=== PATIENT | female | born 1965 | race Caucasian/White ===

== ENCOUNTER 2020-05-11 10:26 | Outpatient (CLI) | payer OTHER | END 2020-05-11 10:38 | disposition home or self-care (01) | LOC: LAB 10:26 | DX: N20.0 Calculus of kidney (principal) ==

== ENCOUNTER 2023-01-06 09:27 | Outpatient (CLI) | payer OTHER | END 2023-01-06 09:37 | disposition home or self-care (01) | LOC: RAD 09:27 | PROVIDERS: ATTEND Dermatology | DX: M86.19 Other acute osteomyelitis, multiple sites (principal) ==

== ENCOUNTER 2023-01-30 13:00 | Outpatient (CLI) | payer OTHER | END 2023-01-30 13:05 | disposition home or self-care (01) | LOC: NUCLEAR 13:00 | PROVIDERS: ATTEND Orthopaedic Surgery | DX: M81.0 Age-related osteoporosis without current pathological fracture (principal) ==

== ENCOUNTER 2023-03-20 08:40 | Outpatient (CLI) | payer OTHER | END 2023-03-20 08:41 | disposition home or self-care (01) | LOC: LAB 08:40 | PROVIDERS: ATTEND Orthopaedic Surgery | DX: E55.9 Vitamin D deficiency, unspecified (principal); M85.9 Disorder of bone density and structure, unspecified; E56.1 Deficiency of vitamin K ==

== ENCOUNTER 2023-10-20 10:44 | Outpatient (CLI) | payer OTHER | END 2023-10-20 10:52 | disposition home or self-care (01) | LOC: RAD 10:44 | PROVIDERS: ATTEND Plastic Surgery | DX: Z01.818 Encounter for other preprocedural examination (principal); R07.9 Chest pain, unspecified ==

== ENCOUNTER 2023-12-20 22:04 | Inpatient (IN) | payer OTHER ==
[~2023-12-20] VITALS: Ht 172.7 cm; Wt 69.9 kg
[2023-12-20] MEDS ORDERED: CLOPIDOGREL BIS75 MG PO (22:51)
[2023-12-20] MEDS ORDERED: LOSARTAN POTASS50 MG PO (22:51)
[2023-12-20] MEDS ORDERED: ADULT LOW DOSE81 M1 PO (22:52)
[2023-12-20] MEDS ORDERED: CILOSTAZOL100 MG PO (22:52)
[2023-12-20] MEDS ORDERED: TOPROL XL25 M1 PO (22:53)
[2023-12-20 23:49] LABS: PH,URINE 5.5 (5.0-8.0); URINE APPEARANCE Clear; URINE BILIRRUBIN Negative (NEGATIVE); URINE BLOOD Negative; URINE COLOR Yellow; URINE GLUCOSE Negative (NEGATIVE); URINE LEUKOCYTE Trace; URINE NITRATE Negative; URINE PROTEIN Negative (NEGATIVE); URINE UROBILINOGEN 0.2 E.U./dl
[2023-12-20 23:52] LABS: URINE BACTERIA 2327.2 uL (0.0-1933); URINE RBC 5.8 uL (0.0-20.8); URINE WBC 30.8 uL (0.0-23.2)
[2023-12-20 23:53] LABS: HEMATOCRIT 41.5 % (36.0-45.00); HEMOGLOBIN 13.3 g/dL (12.0-15.00); MEAN CELL VOLUME 85.3 fL (80.00-100.00); MEAN CORPUSCULAR HEMOGLOBIN 27.3 pg (27.00-32.0); PLATELET COUNT 524 K/uL (150-450); RED BLOOD COUNT 4.86 M/uL (4.00-6.00); RED CELL DISTRIBUTION WIDTH 17.1 % (11.5-14.5)
[2023-12-21 00:54] LABS: INR 0.98; PARTIAL THROMBOPLASTIN TIME 25.2 SECONDS (22.0-34.0); PROTHROMBIN TIME 10.3 SECONDS (9.0-11.5)
[2023-12-21 00:55] LABS: CALCIUM 9.4 mg/dL (8.5-10.1); CREATININE SERUM 1.12 mg/dL (0.55-1.02); GFR 50.32; POTASSIUM 4.31 mEq/L (3.5-5.1)
[2023-12-22 07:08] LABS: HEMATOCRIT 35.6 % (36.0-45.00); HEMOGLOBIN 11.8 g/dL (12.0-15.00); MEAN CELL VOLUME 85.2 fL (80.00-100.00); MEAN CORPUSCULAR HEMOGLOBIN 28.3 pg (27.00-32.0); MEAN CORPUSCULAR HGB CONC 33.3 g/dl (32.0-36.0); PLATELET COUNT 346 K/uL (150-450); RED BLOOD COUNT 4.18 M/uL (4.00-6.00); RED CELL DISTRIBUTION WIDTH 16.8 % (11.5-14.5)
[2023-12-22 07:17] LABS: ALBUMIN 3.3 gm/dL (3.4-5.0); BILIRUBIN TOTAL 0.29 mg/dL (0.3-1.2); CALCIUM 8.9 mg/dL (8.5-10.1); CREATININE SERUM 0.77 mg/dL (0.55-1.02); GFR 77.54; GLOBULINA 2.9 G/DL (2.4-3.5); MAGNESIUM 2.2 mg/dL (1.8-2.4); PHOSPHOROUS 3.2 mg/dL (2.5-4.9); POTASSIUM 4.29 mEq/L (3.5-5.1); TOTAL PROTEIN 6.2 gm/dL (6.4-8.2)
[2023-12-22] MEDS ORDERED: LOSARTAN POTASS25 MG PO (10:45)
[2023-12-22] MEDS ORDERED: CLOPIDOGREL BIS75 MG PO (10:45)
[2023-12-22] MEDS ORDERED: CILOSTAZOL100 MG PO (10:45)
[2023-12-22] MEDS ORDERED: INTEGRA PLUS C1 EACH PO (10:46)
[2023-12-22] MEDS ORDERED: LOPRESSOR25 MG PO (10:46)
== END 2023-12-22 12:47 | disposition home or self-care (01) | DRG 309 ==
LOC: ER 22:04 → SURH 12-21 11:05 → ICU-2 12-21 11:05 → SEC-K 12-21 12:41 → MEDJ 12-21 13:15 → SURH 12-21 13:43
PROVIDERS: Emergency Medicine; General Practice; ADMIT Internal Medicine; ATTEND Internal Medicine
PROC: 4A12X4Z Monitoring of Cardiac Electrical Activity, External Approach (ICD-10-PCS; principal; 2023-12-21)
PROC: B246ZZZ Ultrasonography of Right and Left Heart (ICD-10-PCS; 2023-12-21)
DX: I47.19 Other supraventricular tachycardia (principal); N17.9 Acute kidney failure, unspecified; D72.820 Lymphocytosis (symptomatic); Z20.822 Contact with and (suspected) exposure to COVID-19

== ENCOUNTER 2025-07-18 06:27 | Emergency (ER) | payer OTHER ==
[~2025-07-18] VITALS: Ht 172.7 cm; Wt 74.4 kg
[~2025-07-18 06:27] MED LIST: ADULT LOW DOSE81 M1 PO; CILOSTAZOL100 MG PO; CLOPIDOGREL BIS75 MG PO; INTEGRA PLUS C1 EACH PO; LOPRESSOR25 MG PO; LOSARTAN POTASS25 MG PO; LOSARTAN POTASS50 MG PO; TOPROL XL25 M1 PO
[2025-07-18] MEDS ORDERED: BENZONATATE 100 MG CAPSULE PO ONE (09:00)
[2025-07-18 10:09] LABS: BASO % 0.4 % (0.1-1.2); EOS # 0.05 (0.04-0.54); EOS % 0.3 % (0.7-7.0); LYMPH # 2.03 (1.18-3.74); LYMPH % 11.3 % (19.3-53.1); MEAN PLATELET VOLUME 9.90 fl (9.4-12.4); MONO # 1.27 (0.24-0.82); MONO % 7.1 % (4.7-12.5); NEUT # 14.50 (1.56-6.13); NEUT % 80.5 % (34.0-71.1); RED CELL DISTRIBUTION WIDTH 13.0 % (11.6-14.4)
[2025-07-18 10:26] LABS: COVID-19 AG NEGATIVE (NEGATIVE)
[2025-07-18] MEDS ORDERED: BENZONATATE200 M1 PO (11:09)
[2025-07-18] MEDS ORDERED: ACETAMINOPHEN500 M1 PO (11:09)
[2025-07-18] MEDS ORDERED: ZITHROMAX TRI-500 MG PO (11:09)
[2025-07-18] MEDS ORDERED: IPRAT-ALBUT 0.5-3 ML IH (11:43)
== END 2025-07-18 13:08 | disposition home or self-care (01) ==
LOC: ER 06:27
PROVIDERS: Preventive Medicine Public Health & General Preventive Medicine
DX: J06.9 Acute upper respiratory infection, unspecified (principal); R05.9 Cough, unspecified; R51.9 Headache, unspecified; Z20.822 Contact with and (suspected) exposure to COVID-19